=== PATIENT | female | born 1970 | race Hispanic/Latino ===

== ENCOUNTER 2016-11-12 16:29 | Emergency (ER) | payer OTHER ==
[~2016-11-12] VITALS: Ht 157.5 cm; Wt 113.6 kg
[2016-11-12 16:40] VITALS: BP 116/68; PULSE 104; RESP 16; O2SAT 100
[2016-11-12 19:01] LABS: BASOPHILS % (AUTO) 0.9 % (0-3); EOSINOPHILS % (AUTO) 9.3 % (0-5); MONOCYTES % (AUTO) 6.8 % (4-12); Mean Corpuscular Hemoglobin 24.4 pg (27.0-35.0); Platelet Count 273 bil/L (150-400)
[2016-11-12 19:22] LABS: Magnesium 1.7 mg/dL (1.6-2.6)
[2016-11-12 19:33] LABS: APPEARANCE,URINE CLEAR (CLEAR,HAZY); COLOR,URINE YELLOW (YELLOW)
[2016-11-12 19:34] LABS: OCCULT BLOOD,URINE NEGATIVE (NEGATIVE); UROBILINOGEN,URINE NORMAL (NORMAL)
[2016-11-12 21:06] VITALS: BP 104/58; PULSE 101; RESP 18; O2SAT 100
--- NOTE | 2016-11-12 21:19 | ED.REPORT ---
HPI-Abd Pain F 40 and Over Date of Service Nov 12, 2016 ED Provider: iVrgilio Kelley MD Patient is a 46 year old female with no pertinent medical history who presents to the ED complaining of mid abdominal pain onset a week ago. The patient reports that is has gotten progressively worse the past three days. Associated symptoms include intermittent vomiting and 3-4 episodes of diarrhea today. She denies fever and hematochezia. Nursing Notes Stated Complaint: LOWER ABD PAIN Chief Complaint: Female Abdominal Pain Nursing Notes Reviewed: Yes Allergies: Coded Allergies: No Known Allergies (Verified , 11/12/16) Scheduled PRN Ondansetron ODT (Ondansetron ODT) 8 Mg Tab.rapdis 8 MG PO QID PRN PRN For Nausea General Time Seen by MD: 21:18 Chief Complaint Abdominal pain Hx Obtained From: Patient Arrived By: Walk-in Sudden in Onset?: No Onset Occurred: 1 week ago Progression since Onset: Gradually worsening Recent Healthcare: No recent doctor visit, No recent hospitalization Similar Sx Previous: No Past Medical History Past Medical History depression Past Surgical History none reported Smoking History Unknown if Ever Smoker Ambulatory Status Independent Review of Systems Constitutional: Denies: Fever Respiratory: Denies: Non-productive cough, Shortness of breath GI: Reports: Abdominal pain, Diarrhea, Nausea, Vomiting, Denies: Hematochezia Complete sys rev & neg: except as marked. Physical Exam Vital Signs Vital Signs (First) Date Time Temp Pulse Resp B/P Pulse Ox O2 Delivery O2 Flow Rate FiO2 11/12/16 16:40 36.1 104 16 116/68 100 Room Air Initial VS: Reviewed General/Constitutional: Awake, Alert, No acute distress, Well appearing, Well hydrated Respiratory / Chest: Atraumatic, Breath sounds NL, Breath sounds = bilat, No respiratory distress Cardiovascular: Heart rate NL, Regular rhythm, Heart sounds NL Abdomen: Atraumatic, Soft Organomegaly / Mass / Hernia: Positive: Hernia is reducible (but pops back out) hernia present Back: Atraumatic, Full range of motion Head / Eyes: Atraumatic, Normocephalic, PERRL, EOMI ENT: Atraumatic, Airway patent, Mucous membranes moist Skin: Atraumatic, Color NL, No rash, Warm, Dry Neurologic: Oriented X3, Speech NL, No motor deficits, No sensory deficits Neck: Atraumatic, Supple, Full range of motion Upper Extremity / MS: Atraumatic, Full range of motion Lower Extremity / Pelvis / MS: Atraumatic, Full range of motion Psychiatric: Affect NL, Mood NL Interpretation & Diagnostics Lab Results Interpretation Result Diagram: 11/12/165 11/12/161834 Test 11/12/16 18:00 11/12/16 18:35 Urine Color Yellow (YELLOW) Urine Appearance Clear (CLEAR,HAZY) Urine pH 6.0 (5.0-8.0) Urine Specific [place] 1.005 (1.003-1.035) Urine Protein Negativemg/dL (NEG,TRACE) Urine Glucose (UA) Negativemg/dL (NEGATIVE) Urine Ketones Negativemg/dL (NEGATIVE) Urine Occult Blood Negative (NEGATIVE) Urine Nitrite Negative (NEGATIVE) Urine Bilirubin Negative (NEGATIVE) Urine Urobilinogen Normalmg/dL (NORMAL) Urine Leukocyte Esterase Negative (NEGATIVE) Urine RBC 0-2/hpf (0-2) Urine WBC 0-5/hpf (0-5) Urine Epithelial Cells Many/hpf (NONE-MOD) Urine Crystals None seen (NONE SEEN) Urine Bacteria Many/hpf (NONE-FEW) Urine Hyaline Casts None/lpf (NONE) Urine Granular Casts None seen (NONE SEEN) Urine Waxy Casts None seen (NONE SEEN) Urine Red Blood Cell Casts None seen (NONE SEEN) Urine White Blood Cell Casts None seen (NONE SEEN) Urine Mucus None seen (None Seen) Urine Trichomonas None seen (NONE SEEN) Urine Yeast None (NONE SEEN) Urinalysis Comment None Urine Culture Reflexed Indicated Hold Urine Received (Received) White Blood Count 5.6th/mm3 (3.8-10.1) Red Blood Count 4.54mil/mm3 (3.90-5.20) Hemoglobin 11.1g/dL (12.0-15.6) Hematocrit 35.4% (35.0-46.0) Mean Corpuscular Volume 78.0fL (81-100) Mean Corpuscular Hemoglobin 24.4pg (27.0-35.0) Mean Corpuscular Hemoglobin Concent 31.4% (32.0-37.0) Red Cell Distribution Width 15.3% (12.3-15.4) Platelet Count 273bil/L (150-400) Neutrophils (%) (Auto) 55.0% (40-74) Lymphocytes (%) (Auto) 27.8% (14-46) Monocytes (%) (Auto) 6.8% (4-12) Eosinophils (%) (Auto) 9.3% (0-5) Basophils (%) (Auto) 0.9% (0-3) Sodium Level 138mEq/L (134-144) Potassium Level 3.9mEq/L (3.5-5.2) Chloride Level 99mEq/L (97-108) Carbon Dioxide Level 23mmol/L (18-29) Blood Urea Nitrogen 11mg/dL (6-24) Creatinine 0.62mg/dL (0.57-1.00) Estimat Glomerular Filtration Rate 149mL/min (>59) Glucose Level 160mg/dL (60-99) Calcium Level 9.3mg/dL (8.5-10.1) Magnesium Level 1.7mg/dL (1.6-2.6) Total Bilirubin 0.2mg/dL (0.0-1.2) Aspartate Amino Transf (AST/SGOT) 27U/L (0-50) Alanine Aminotransferase (ALT/SGPT) 23U/L (0-32) Alkaline Phosphatase 110U/L (25-150) Total Protein 7.3g/dL (6.4-8.4) Albumin 3.7g/dL (3.4-5.0) Lipase 14U/L (13-60) Hold [place] Top Tube Received (Received) CT Abd / Pelvis Interpretation Conclusion: Ventral abdominal wall hernia containing fat. No bowel loops are identified within the hernia. Diverticulosis. Status post cholecystectomy. at [id number] Interpretation / Wet Read by: Interpret - Radiologist Re-Eval/Medical Decision Med Decision/Clinical Course 46-year-old history with a painful lump in her midabdomen a large fat filled umbilical hernia. I reduced it prior to the CT scan and probably pushed in bowel out of it by palpation. She will require referral for inpatient hospital removal. Source of Hx: Old records Re-Evaluation/Progress : Time of Eval: 23:36 Patient Status: Condition improved Re-Evaluation/Progress Note: Rechecked patient. Discussed radiology results and diagnosis. Discussed plan for discharge and treatment. The patient understands and agrees to the plan for discharge. All questions were addressed. Counseled Regarding: Diagnosis, Lab results, Need for follow-up, When/why to return to ED Discharge & Departure Primary Impression: Umbilical hernia Obstruction and gangrene presence: without obstruction or gangrene Qualified Code: K42.9 - Umbilical hernia without obstruction or gangrene Disposition: Home Discharge Condition All VS Reviewed: Yes Condition: Stable Patient Instructions: Umbilical Hernia (ED) Additional Instructions: You have a fairly sizable hernia around your umbilicus. It does not contain bowel at this point, does not need emergency surgery. However, it is of a size that can get bowel caught in it, and can become dangerous. You will need a consultation with surgery to see about elective surgery to fix this. Call your doctor Monday morning for follow-up. Call the surgical office also. Return if you develop worsening vomiting, or other new symptoms of concern. Referrals: Ac Ramírez MD (PCP) Scribe Attestation Portions of this note were transcribed by Elizabeth Huerta and Bebeto Sandoval. I, Dr. Kelley personally performed the history, physical exam and medical decision -making; I reviewed and confirmed the accuracy of the information in the transcribed note. Signed by: Elizabeth Sandoval, [place], 11/13/16 and 0025. copies to: Ac Ramírez MD, Christopher W MD Nov 12, 2016 21:19 Dulce Huerta Nov 12, 2016 21:27 BEBETO SANDOVAL Nov 12, 2016 21:59
[2016-11-12] MEDS ORDERED: 0.9% Sodium Chloride 1,000 ML IV ONE (21:30)
[2016-11-12] MEDS ORDERED: ONDA8TAB10 PO (23:36)
[2016-11-12] MEDS ORDERED: Ketorolac 15 mg/mL Inj IVPUSH ONE (23:40)
[2016-11-12 23:55] VITALS: BP 106/58; PULSE 97; RESP 18; O2SAT 99
--- NOTE | 2016-11-13 09:37 | DRSVH ---
PROCEDURE: CT ABDOMEN AND PELVIS WITH CONTRAST ([id number]) INDICATIONS: umbilical hernia, nausea and diarrhea TECHNIQUE: After the administration of intravenous contrast, 5 mm thick sections acquired from the diaphragm to the symphysis. 5 mm coronal and sagittal reformats were acquired. For radiation dose reduction, the following was used: automated exposure control, adjustment of mA and/or kV according to patient siz e. COMPARISON: None. FINDINGS: Image quality: Excellent. ABDOMEN: Lung bases: Lung bases are clear. Heart size is normal. Solid organs: Liver and spleen are normal in size and enhancement. Gallbladder is surgically absent . Biliary system is non dilated. Pancreas enhances normally. No adrenal nodules. Kidneys demonstr ate normal size and enhancement, without hydronephrosis. Peritoneum and bowel: Bowel loops demonstrate normal wall thickness and caliber. The appendix is no rmal. A few scattered colonic diverticula present. No active diverticulitis. No free fluid or air. Nodes and vessels: No retroperitoneal or mesenteric adenopathy by size criteria. Aorta and inferior vena cava are normal in size. Miscellaneous: There is a large paraumbilical ventral hernia measuring 6.2 x x 6.8 x 9.2 cm ventral h ernias, containing omental fat. The hernia neck is relatively narrow measuring 2.3 x 1.8 cm. PELVIS: Genitourinary: Bladder wall thickness is normal. Miscellaneous: No inguinal hernias or adenopathy. Bones: No suspicious bony lesions. No vertebral body compression fractures. IMPRESSION: 1. A large 6.2 x 6.8 x 9.2 cm paraumbilical ventral hernia containing omental fat. 2. Mild diverticulosis. No active diverticulitis. No significant discrepancy with the retail shift supervisor radiology preliminary report. Dictated by: Teresita Padron M.D. on 11/13/2016 at 9:30 Approved by: Teresita Padron M.D. on 11/13/2016 at 9:35
[2016-12-06] MEDS ORDERED: IBUP800T28 PO (16:13)
[2016-12-06] MEDS ORDERED: AMIT100T2 PO (16:13)
[2016-12-06] MEDS ORDERED: METH500T PO (16:13)
[2016-12-06] MEDS ORDERED: GABA-502 PO (16:13)
[2016-12-06] MEDS ORDERED: CHOL10008 PO (16:13)
[2016-12-06] MEDS ORDERED: SERT100T9 PO (16:13)
[2016-12-06] MEDS ORDERED: HYDR-656 PO (16:13)
== END 2016-11-12 23:56 | disposition home or self-care (01) ==
LOC: SED 16:29
DX: K42.9 Umbilical hernia without obstruction or gangrene (principal)
CPT/HCPCS: 36415; 74177; 80053; 81000; 81025; 83690; 83735; 85025; 87077; 87086; 87088; 87186; 96361; 96374; 99285; J1885; J7030; Q9967

== ENCOUNTER 2016-12-08 11:50 | Day surgery (SDC) | payer OTHER ==
[~2016-12-08] VITALS: Ht 157.5 cm; Wt 106.6 kg
[~2016-12-08 11:50] MED LIST: AMIT100T2 PO; CHOL10008 PO; GABA-502 PO; HYDR-656 PO; IBUP800T28 PO; METH500T PO; ONDA8TAB10 PO; SERT100T9 PO; fentaNYL-PF 50 mCg/mL 2 mL Inj IVPUSH PRN
[2016-12-08 12:13] VITALS: BP 114/69; PULSE 114; RESP 16; O2SAT 98
[2016-12-08] MEDS ORDERED: 0.9% Sodium Chloride 1,000 ML IV ONE ×3 (12:26→13:56)
[2016-12-08 13:22] VITALS: BP 108/61; PULSE 99; RESP 16; O2SAT 93
[2016-12-08 13:32] VITALS: BP 93/62; PULSE 99; RESP 16; O2SAT 91
[2016-12-08 13:42] VITALS: BP 101/50; PULSE 102; RESP 16; O2SAT 95
--- NOTE | 2016-12-08 15:25 | ENDO ---
[address] [address] ENDOSCOPY PROCEDURE PATIENT: RONY ARGUETA I : 1970 MR#: [id number] ADMIT: 12/08/2016 JOB ID: [id number] DATE OF SERVICE: 12/08/2016 PREPROCEDURAL DIAGNOSIS: Hematochezia in the setting of anemia. POSTPROCEDURAL DIAGNOSIS: Hematochezia in the setting of anemia. PROCEDURE PERFORMED: Flexible sigmoidoscopy (failed colonoscopy). SURGEON: Kristal Brooks MD. INSTRUMENT: [employer]us [id number]-[id number]. MEDICATIONS: 1. Versed 3 mg. 2. Fentanyl 75 mcg. PREPARATION: Poor. HISTORY OF PRESENT ILLNESS: This is a 46-year-old woman who presented for an evaluation regarding an umbilical hernia, and during that evaluation was found to have hematochezia without external sign of hemorrhoids, as well as anemia. To evaluate the cause of anemia, colonoscopy was scheduled. FINDINGS: Very poor prep with a large quantity of formed stool. The flexible sigmoidoscopy was completed to 50 cm and then aborted. DESCRIPTION OF PROCEDURE: The patient was brought to the endoscopy suite, and placed in left lateral decubitus position. Moderate sedation was induced. A digital rectal examination was performed and was normal. As before, there was no sign of external hemorrhoids. The endoscope was advanced into the rectal vault, which contained moderate liquid stool. It was advanced as far as 50 cm, and there were large quantities of formed stool present. Almost none of the mucosa was visible. The colonoscopy was then aborted. SPECIMENS: None. COMPLICATIONS: None. ESTIMATED BLOOD LOSS: None. DISPOSITION: Plan for repeat with double split prep.
== END 2016-12-08 23:59 | disposition home or self-care (01) ==
LOC: END 11:50
PROVIDERS: ATTEND Surgery
DX: K92.1 Melena (principal); E66.01 Morbid (severe) obesity due to excess calories; Z68.42 Body mass index [BMI] 45.0-49.9, adult; Z53.09 Procedure and treatment not carried out because of other contraindication
CPT/HCPCS: 45378; 99152; J7030